=== PATIENT | male | born 1975 | race African-American/Black ===

== ENCOUNTER 2024-02-23 19:46 | Emergency (ER) | payer BC ==
[~2024-02-23] VITALS: Ht 182.8 cm; Wt 127.0 kg
[2024-02-23] MEDS ORDERED: ASPIR-TRIN325 MG PO (20:10)
[2024-02-23] MEDS ORDERED: PREGABALIN50 MG PO (20:10)
[2024-02-23] MEDS ORDERED: LIPITOR80 MG PO (20:10)
[2024-02-23] MEDS ORDERED: AMOX-CLAV 875-1 EACH PO (20:23)
[2024-02-23] MEDS ORDERED: Amoxicillin/Clavulanate Pota 875 MG TAB PO ONE (20:25)
== END 2024-02-23 20:24 | disposition home or self-care (01) ==
LOC: ED 19:46
DX: J32.9 Chronic sinusitis, unspecified (principal)

== ENCOUNTER 2024-04-06 20:13 | Emergency (ER) | payer BC ==
[~2024-04-06] VITALS: Ht 177.8 cm; Wt 117.9 kg
[~2024-04-06 20:13] MED LIST: AMOX-CLAV 875-1 EACH PO; ASPIR-TRIN325 MG PO; LIPITOR80 MG PO; PREGABALIN50 MG PO
[2024-04-06 20:39] LABS: BASO % 0.4 % (0.0-1.0); EOS # 0.3 10*3/uL (0.0-0.4); EOS % 2.7 % (1.0-4.0); HEMATOCRIT 41.2 % (42.0-52.0); LYMPH # 3.9 10*3/uL (1.3-4.4); LYMPH % 38.5 % (27.0-41.0); MEAN CELL VOLUME 91.4 fl (80.0-94.0); MEAN CORPUSCULAR HGB 29.3 pg (27.0-31.0); MEAN PLATELET VOLUME 9.6 fl (9.6-12.3); MONO # 0.7 10*3/uL (0.1-1.0); NEUT # 5.2 10*3/uL (2.3-7.9); NEUT % 51.2 % (47.0-73.0); PLATELET COUNT AUTOMATED 199 10*3/uL (130-400); RED BLOOD COUNT 4.51 10*6/uL (4.50-5.90); WHITE BLOOD COUNT 10.1 10*3/uL (4.8-10.8)
[2024-04-06 20:59] LABS: ALKALINE PHOSPHATASE 73 U/L (46-116); BUN 12 mg/dl (9-23); CHLORIDE 104 mmol/L (98-107); POTASSIUM 4.2 mmol/L (3.4-5.1); SGPT/ALT 54 U/L (5-49); TOTAL PROTEIN 7.4 gm/dL (6.0-8.0)
[2024-04-06] MEDS ORDERED: Ketorolac Tromethamine 60 MG/2 ML VIAL IM ONE (23:40)
[2024-04-06] MEDS ORDERED: NAPROXEN250 MG PO (23:48)
== END 2024-04-07 00:31 | disposition home or self-care (01) ==
LOC: ED 20:13
PROVIDERS: Internal Medicine
DX: R07.89 Other chest pain (principal); R20.0 Anesthesia of skin; Z79.82 Long term (current) use of aspirin; Z79.2 Long term (current) use of antibiotics; Z79.899 Other long term (current) drug therapy